=== PATIENT | male | born 1945 | race Caucasian/White ===

== ENCOUNTER 2022-07-09 12:56 | Emergency (ER) | payer OTHER, MEDICAID ==
[~2022-07-09] VITALS: Ht 172.7 cm; Wt 68.0 kg
--- NOTE | 2022-07-09 12:59 | NUR ---
PATIENT BIBA TO BED 8.
[2022-07-09 13:03] VITALS: BP 128/64
--- NOTE | 2022-07-09 13:05 | NUR ---
76 y/o male biba from [facility], c/o nose bleed after picking nose today. pt a&ox4, baseline gcs 14 dementia. bleed resolved with pressure at this time. denies any symptoms at this time. pt has gtube in place, mychal valve added for pressure control. 10ml residuals, 50 ml sterile water flushed. . patient positioned for comfort. hob elevated. bed down. ermd made aware of pt. pmh: epilepsy, htn, hld, dementia nka med: jannet
--- NOTE | 2022-07-09 14:13 | NUR ---
Patient discharged with v/s stable. Advised to follow up with PMD.
--- NOTE | 2022-07-09 15:10 | NUR ---
spoke with spencer brewster for report back to facility, pt has been cleared by md dejesus to go back to [facility]. spencer brewster states she will not take back the patient at this time because, "pt is altered and needs labs and urine tests". had her speak with anjelica rausch, agreed on cbc and cmp labs at this time. when asked if transport was available, states "we cant take him back unless we have labs or something done for him."
[2022-07-09 15:40] LABS: BASOPHILS % (AUTO) 0.6 % (0.0-2.0); EOSINOPHILS # (AUTO) 0.2 K/uL (0-0.4); EOSINOPHILS % (AUTO) 3.3 % (0.0-4.0); HEMATOCRIT 37.2 % (36-52); HEMOGLOBIN 12.5 g/dL (12.0-18.0); LYMPHOCYTES % (AUTO) 16.3 % (20.5-51.1); MEAN CORPUSCULAR HEMOGLOBIN 32 pg (27-31); MEAN CORPUSCULAR HGB CONC 34 g/dL (33-37); MEAN CORPUSCULAR VOLUME 94.4 fL (80-94); MONOCYTES # (AUTO) 0.7 K/uL (0.8-1.0); MONOCYTES % (AUTO) 11.5 % (1.7-9.3); NEUTROPHILS # (AUTO) 4.4 K/uL (1.8-7.7); NEUTROPHILS % (AUTO) 68.3 % (42.2-75.2); PLATELET COUNT (AUTO) 298 K/uL (140-450); RED BLOOD CELL COUNT(AUTO) 3.94 MIL/uL (4.20-6.10); RED CELL DISTRIBUTION WIDTH 13.6 % (11.6-13.7); WHITE BLOOD COUNT (AUTO) 6.4 K/uL (4.8-10.8)
[2022-07-09] MEDS ORDERED: LORazepam 1 MG TAB PO ONE (15:45)
[2022-07-09 15:57] LABS: ALBUMIN 3.4 g/dL (3.4-5.0); ASPARTATE AMINOTRANSFERASE 24 U/L (15-37); CARBON DIOXIDE 28.3 mmol/L (21-32); CHLORIDE 99 mmol/L (98-107); CREATININE 0.9 mg/dL (0.6-1.3); GLUCOSE 101 mg/dL (74-106); POTASSIUM 4.3 mmol/L (3.5-5.1); SODIUM SERUM 136 mmol/L (136-145); TOTAL BILIRUBIN 0.6 mg/dL (0.0-1.0); UREA NITROGEN, BLOOD 31 mg/dL (7-18)
--- NOTE | 2022-07-09 16:40 | NUR ---
facility called back for report on lab findings for pt, spoke with sepncer brewster and states "we can not take him because he needs ammonia levels done and we do not have transport". spoke with katy oglesby rn supervisor cigar making hand, states she will call us back with update on transport.
--- NOTE | 2022-07-09 17:00 | NUR ---
per dye house worker, okay to send by ambulance, states it has been cleared to go back
--- NOTE | 2022-07-09 17:47 | NUR ---
TRANSPORTATION AT BEDSIDE.
[2022-07-09 17:53] VITALS: BP 136/87
--- NOTE | 2022-07-09 17:55 | NUR ---
Patient discharged with v/s stable. Written and verbal after care instructions given and explained. Patient verbalized understanding. Transport to [facility]. All questions addressed prior to discharge. Advised to follow up with PMD.
== END 2022-07-09 17:55 | disposition home or self-care (01) ==
LOC: MED 12:56
DX: R04.0 Epistaxis (principal)
CPT/HCPCS: 36415; 80053; 85025; 99283